=== PATIENT | male | born 1970 | race Caucasian/White ===

== ENCOUNTER → 2023-09-23 | Outpatient (CLI) | payer OTHER, MEDICARE ==
--- NOTE | 2023-09-23 12:29 | US ---
EXAMINATION TYPE: US liver DATE OF EXAM: 09/23/2023 COMPARISON: NONE CLINICAL INDICATION: Male, 53 years old with history of R74.01 ELEVATION OF LEVELS OF LIVER TRANSAMIN ASE L; LFTs TECHNIQUE: Multiple sonographic images of the right upper quadrant are obtained. FINDINGS: EXAM MEASUREMENTS: Liver Length: 18.7 cm Gallbladder Wall: 0.1 cm CBD: 0.6 cm Right Kidney: 13.0x4.3x5.3 cm PEOPLE MANAGER NOTES: Pancreas: mostly obscured by overlying bowel gas Liver: enlarged and echogenic Gallbladder: fold noted Evidence for sonographic Burton's sign: No CBD: upper limits Right Kidney: anechoic area vs dilated pelvis: 1.5x1.0x1.3cml exam limited by bowel and body habitus IMPRESSION: 1. Hepatomegaly with fatty infiltration. 2. Mid to inferior pole right renal cyst.
== END | disposition home or self-care (01) ==
LOC: RADUSWWP 11:40
PROVIDERS: ATTEND Internal Medicine
DX: K76.0 Fatty (change of) liver, not elsewhere classified (principal); R16.0 Hepatomegaly, not elsewhere classified; N28.1 Cyst of kidney, acquired; R74.01 Elevation of levels of liver transaminase levels
CPT/HCPCS: 76705

== ENCOUNTER → 2024-07-28 | Outpatient (CLI) | payer OTHER, MEDICARE ==
--- NOTE | 2024-07-28 10:08 | XR ---
EXAMINATION TYPE: XR Hip Complete LT DATE OF EXAM: 07/28/2024 10:04 AM INDICATION: Patient age:Male; 54 years old; Reason for study: M25.552 PAIN IN LEFT HIP; PHH. COMPARISON: None. TECHNIQUE: The left hip was examined in the frontal and lateral projections . FINDINGS: No evidence of any acute osseous pathology, joint dislocation, or soft tissue swelling. Mar ginal acetabular spurring demonstrated. No significant joint space narrowing. Vascular sclerosis. IMPRESSION: 1. No acute osseous pathology. 2. 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 [facility], , 07/28/2024 10:06 AM
[2024-07-28 15:53] LABS: HCT 45.3 % (39.6-50.0); HGB 14.4 g/dL (13.0-17.0); MCH 23.7 pg (27.0-32.0); MCHC 31.8 g/dL (32.0-37.0); MCV 74.6 FL (80.0-97.0); NRBC Per 100 WBC 0 X 10*3/uL (0.00-0.01); Platelet Count 164 X 10*3/uL (140-440); RBC 6.07 X 10*6/uL (4.40-5.60); RDW 14.1 % (11.5-14.5); WBC 8.33 X 10*3/uL (4.50-10.00)
[2024-07-28 16:23] LABS: Basophils # (A) 0.07 X 10*3/uL (0.00-0.10); Basophils % (A) 0.8 %; Eosinophils # (A) 0.37 X 10*3/uL (0.04-0.35); Eosinophils % (A) 4.4 %; Lymphocytes # (A) 3.01 X 10*3/uL (0.90-5.00); Lymphocytes % (A) 36.1 %; Microcytosis (M) 2+; Monocytes # (A) 0.71 X 10*3/uL (0.20-1.00); Monocytes % (A) 8.5 %; Neutrophils % (A) 49.4 %
[2024-07-28 17:50] LABS: ALT 53 U/L (10-49); AST 43 U/L (14-35); Albumin 4.7 g/dL (3.8-4.9); Albumin/Globulin Ratio 1.81 Ratio (1.60-3.17); Alkaline Phosphatase 78 U/L (41-126); BUN/Creat Ratio 12.73 Ratio (12.00-20.00); Calcium 9.6 mg/dL (8.7-10.3); Carbon Dioxide 23.2 mmol/L (21.6-31.8); Chloride 99 mmol/L (96-109); Globulin 2.6 g/dL (1.6-3.3); Glucose 162 mg/dL (70-110); LDL Cholesterol,Calculated 27.6 mg/dL (0.0-131.0); Magnesium 1.8 mg/dL (1.5-2.4); PSA Annual Screen 0.107 ng/mL (0.000-4.000); Potassium 4.6 mmol/L (3.5-5.5); Sodium 138 mmol/L (135-145); Total Bilirubin 0.5 mg/dL (0.3-1.2); Total Protein 7.3 g/dL (6.2-8.2)
[2024-07-28 22:59] LABS: Microalbumin Creatinine Ratio <15 mg/g Cr (0-30); Urine Creatinine 80.2 mg/dL (39.0-259.0)
== END | disposition home or self-care (01) ==
LOC: LABWHC1 09:25
PROVIDERS: ATTEND Internal Medicine
CPT/HCPCS: 36415; 73502; 80053; 80061; 82043; 82306; 82330; 82570; 83036; 83735; 84443; 85025